=== PATIENT | male | born 1990 | race Hispanic/Latino ===

== ENCOUNTER 2021-10-24 16:37 | Emergency (ER) | payer SELFPAY ==
--- NOTE | 2021-10-24 16:57 | ER ---
Nurse's Notes [facility] Name: Douglas Orozco Age: 31 yrs Sex: Male : 1990 Arrival Date: 10/24/2021 Time: 16:42 Bed 14 Private MD: Diagnosis: Cutaneous abscess of other sites-scrotum Presentation: 10/24 16:44 Chief complaint: Patient states: "I went to the doctor yesterday because a couple days ab2 ago I noticed this lump on my left leg and they gave me antibiotics, but the pain is unbearable.". Coronavirus screen: Vaccine status: Patient reports being unvaccinated. Client denies travel out of the [place] in the last 14 days. At this time, the client does not indicate any symptoms associated with coronavirus-19. Ebola Screen: Patient negative for fever greater than or equal to 101.5 degrees Fahrenheit, and additional compatible Ebola Virus Disease symptoms Patient denies exposure to infectious person. Patient denies travel to an Ebola-affected area in the 21 days before illness onset. No symptoms or risks identified at this time. Initial Sepsis Screen: Does the patient meet any 2 criteria? No. Patient's initial sepsis screen is negative. Does the patient have a suspected source of infection? No. Patient's initial sepsis screen is negative. Risk Assessment: Do you want to hurt yourself or someone else? Patient reports no desire to harm self or others. Onset of symptoms is unknown. 16:44 Method Of Arrival: Ambulatory ab2 16:44 Acuity: TAL 4 ab2 Triage Assessment: 16:46 General: Appears in no apparent distress. uncomfortable, Behavior is calm, cooperative, ab2 appropriate for age. Pain: Complains of pain in medial aspect of left thigh. Derm: Parent/caregiver reports the patient having Abscess like lump on left groin. Historical: - Allergies: 16:45 No Known Allergies; ab2 - PMHx: 16:45 None; ab2 - PSHx: 16:45 None; ab2 - Immunization history:: Adult Immunizations up to date. - Social history:: Smoking status: Patient denies any tobacco usage or history of. Screenin:45 Abuse screen: Denies threats or abuse. Denies injuries from another. Nutritional bp screening: No deficits noted. Tuberculosis screening: No symptoms or risk factors identified. Fall Risk None identified. Assessment: 16:45 General: SEE TRIAGE NOTE. bp 17:18 Reassessment: PT D/C HOME AMBULATORY, DX WITH CUTANEOUS ABSCESS. bp Vital Signs: 16:44 BP 146 / 101; Pulse 88; Resp 17; Temp 98.9(TE); Pulse Ox 100% on R/A; Weight 92.99 kg; ab2 Height 5 ft. 8 in. (172.72 cm); Pain 8/10; 16:44 Body Mass Index 31.17 (92.99 kg, 172.72 cm) ab2 ED Course: 16:42 Patient arrived in ED. am2 16:45 Triage completed. ab2 16:45 Patient has correct armband on for positive identification. Bed in low position. Call bp light in reach. Side rails up X2. 16:45 Assist provider with I \\T\\ D: of an abscess on GROIN. bp 16:46 Arm band placed on left wrist. ab2 16:48 Pamela Germain FNP-C is [facility]. kb 16:48 Radu Peñaloza MD is Attending Physician. kb 16:51 Chevy Black, REGINO is Primary Nurse. bp 17:18 Patient did not have IV access during this emergency room visit. bp Administered Medications: 17:00 Drug: [place] (HYDROcodone-acetaminophen) 10 mg-325 mg 1 tabs Route: PO; bp 17:20 Follow up: Response: No adverse reaction; Pain is decreased bp Outcome: 16:56 Discharge ordered by MD. kb 17:18 Discharged to home ambulatory, with family. bp 17:18 Condition: stable 17:18 Discharge instructions given to patient, Instructed on discharge instructions, follow up and referral plans. medication usage, wound care, SITZ BATH Demonstrated understanding of instructions, follow-up care, medications, wound care, Prescriptions given X 1. 17:20 Patient left the ED. bp Signatures: Pamela Germain FNP-C PHYSICIAN PRACTICE CONSULTANT-Sherin Sotomayor am2 Chevy Black, RN RN bp Carlos Garcia ab2
--- NOTE | 2021-10-24 16:57 | EDPHYS ---
Physician Documentation [facility] Name: Douglas Orozco Age: 31 yrs Sex: Male : 1990 Arrival Date: 10/24/2021 Time: 16:42 Bed 14 Private MD: ED Physician Radu Peñaloza HPI: 10/24 17:16 This 31 yrs old Male presents to ER via Ambulatory with complaints of Groin kb Pain - mass. 17:17 The patient presents with an abscess of the scrotum. Description: draining. Onset: The kb symptoms/episode began/occurred 4 day(s) ago. Possible cause(s): unknown. Associated signs and symptoms: Pertinent positives: drainage, erythema, swelling. Modifying factors: the symptoms are aggravated by pressure, squeezing the lesion and expressing the contents, touching. Severity of symptoms: At their worst the symptoms were moderate, in the emergency department the symptoms are unchanged. The patient has experienced similar episodes in the past, a few times. The patient has not recently seen a physician. Pt states he developed an abscess 3-4 days ago. Went to PCP and was given bactrim yesterday. Came in today due to pain. States he thinks it popped when he walked to the room because it feels wet in the area now. . Historical: - Allergies: 16:45 No Known Allergies; ab2 - PMHx: 16:45 None; ab2 - PSHx: 16:45 None; ab2 - Immunization history:: Adult Immunizations up to date. - Social history:: Smoking status: Patient denies any tobacco usage or history of. ROS: 17:13 Constitutional: Negative for fever, chills, and weight loss. kb 17:13 Skin: Positive for abscess, of the scrotum. 17:13 All other systems are negative. Exam: 17:16 Constitutional: This is a well developed, well nourished patient who is awake, alert, kb and in no acute distress. Head/Face: Normocephalic, atraumatic. ENT: Moist Mucous membranes Respiratory: Respirations even and unlabored. No increased work of breathing. Talking in full sentences MS/ Extremity: Pulses equal, no cyanosis. Neurovascular intact. Full, normal range of motion. Neuro: Awake and alert, GCS 15, oriented to person, place, time, and situation. Moves all extremities. Normal gait. Psych: Awake, alert, with orientation to person, place and time. Behavior, mood, and affect are within normal limits. 17:16 Skin: abscess, that is moderate sized, of the scrotum, with drainage, that is purulent, that is serosanguinous. Vital Signs: 16:44 BP 146 / 101; Pulse 88; Resp 17; Temp 98.9(TE); Pulse Ox 100% on R/A; Weight 92.99 kg; ab2 Height 5 ft. 8 in. (172.72 cm); Pain 8/10; 16:44 Body Mass Index 31.17 (92.99 kg, 172.72 cm) ab2 MDM: 16:48 Patient medically screened. kb 17:11 Data reviewed: vital signs, nurses notes. Data interpreted: Pulse oximetry: on room air kb is 100 %. Interpretation: normal. Counseling: I had a detailed discussion with the patient and/or guardian regarding: the historical points, exam findings, and any diagnostic results supporting the discharge/admit diagnosis, the need for outpatient follow up, a family practitioner, to return to the emergency department if symptoms worsen or persist or if there are any questions or concerns that arise at home. 17:18 ED course: Large amount of drainage noted to underwear and around abscess. Pt educated kb on sitz baths and completing antibiotics, also added keflex for more coverage. . Administered Medications: 17:00 Drug: [place] (HYDROcodone-acetaminophen) 10 mg-325 mg 1 tabs Route: PO; bp 17:20 Follow up: Response: No adverse reaction; Pain is decreased bp Disposition Summary: 10/24/21 16:56 Discharge Ordered Location: Home kb Condition: Stable kb Diagnosis - Cutaneous abscess of other sites - scrotum kb Followup: kb - With: Emergency Department - When: As needed - Reason: Worsening of condition Followup: kb - With: Private Physician - When: 2 - 3 days - Reason: Recheck today's complaints, Continuance of care, Re-evaluation by your physician Discharge Instructions: - Discharge Summary Sheet kb - Skin Abscess, [id number] kb - Incision and Drainage, Care After kb Forms: - Medication Reconciliation Form kb - Thank You Letter kb - Antibiotic Education kb - Prescription Opioid Use kb Prescriptions: - Cephalexin 500 mg Oral Capsule - take 1 capsule by ORAL route every 8 hours for 10 days; 30 capsule; Refills: 0, kb Product Selection Permitted Addendum: 10/28/2021 07:07 Co-signature as Attending Physician, Radu Peñaloza MD I agree with the assessment and c cabrales plan of care. Signatures: Pamela Germain, ELECTRONIC SYSTEMS SECURITY ASSESSMENT-C ELECTRONIC SYSTEMS SECURITY ASSESSMENT-Ckb Radu Peñaloza MD MD cha Peltier, Brian, RN RN Carlos Lopez
[2021-10-24] MEDS ORDERED: HYDROCODONE/APAP 10/325 TAB ONE (17:01)
[2021-10-24 17:48] VITALS: BP 146/101; TEMP 98.9; O2SAT 100
== END 2021-10-24 17:20 | disposition home or self-care (01) ==
LOC: ER 16:37
DX: N49.2 Inflammatory disorders of scrotum (principal)
CPT/HCPCS: 99283